=== PATIENT | male | born 1980 | race Caucasian/White ===

== ENCOUNTER 2021-05-10 08:50 | Day surgery (SDC) | payer OTHER ==
[2021-05-10 09:05] LABS: Absolute Lymphocytes (CBC) 0.9 K/uL (0.7-4.9); Basophils % 0.4 % (0-1.3); Hematocrit 38.6 % (39.6-49.0); Lymphocytes % 16.4 % (15.3-44.8); MPV 8.2 fL (7.6-11.3); RBC Red Blood Cell Count 4.95 M/uL (4.33-5.43)
[2021-05-10 09:21] LABS: Potassium 4.3 mmol/L (3.5-5.1)
--- NOTE | 2021-05-10 09:31 | RAD REPORT ---
EXAM DESCRIPTION: Roderick Baird (2 Views)05/10/2021 8:46 am CLINICAL HISTORY: Preop for abdominal mass surgery COMPARISON: None FINDINGS: The lungs appear clear of acute infiltrate. The heart is normal size IMPRESSION: No acute abnormalities displayed
[2021-05-10] MEDS ORDERED: Ringers Lactate 1,000 ML IV ONE (10:05)
[2021-05-10 10:06] VITALS: O2SAT 100
[2021-05-10] MEDS ORDERED: FENTANYL CITR 100 MCG/2 ML ONE (12:02)
[2021-05-10] MEDS ORDERED: propofoL 200 MG/20 ML VIAL IV ONE (12:02)
[2021-05-10] MEDS ORDERED: LIDOCAINE 2% MPF 5 ML VIAL ONE (12:02)
[2021-05-10] MEDS ORDERED: MIDAZOLAM HCL 2 MG/2 ML INJ ONE (12:02)
[2021-05-10] MEDS ORDERED: ONDANSETRON 4 MG/2 ML VIAL ONE (12:02)
[2021-05-10] MEDS ORDERED: KETOROLAC 30 MG/ML INJ ONE (12:03)
[2021-05-10] MEDS ORDERED: dexAMETHasone 10 MG/ML VIAL ONE (12:03)
[2021-05-10] MEDS: CEFAZOLIN/SWI 1gm 1 GM/10 ML SYR ONE ×2 (12:22→12:29)
--- NOTE | 2021-05-10 12:44 | P.BOP ---
Preoperative diagnosis: infected abdominal wall subQ mass, cellulitis /abscess abdominal wall Postoperative diagnosis: same Primary procedure: Excisional biopsy of infected abdominal wall subQ mass 3x3 cm Estimated blood loss: <10cc Specimen: infected abdominal wall subQ mass Findings: infected abdominal wall subQ mass with abscess Anesthesia: General Complications: None Drain(s): Other Transferred to: Recovery Room Condition: Good
--- NOTE | 2021-05-10 13:18 | OP ---
Date of Procedure: 05/10/2021 Surgeon: Gus Bhatia MD Preoperative Diagnoses: Infected abdominal wall subcutaneous mass with cellulitis, abscess of the ab dominal wall. Postoperative Diagnoses: Infected abdominal wall subcutaneous mass with cellulitis, abscess of the a bdominal wall. Procedures: Excisional biopsy of infected abdominal wall subcutaneous mass 3 x 3 cm with drainage of an abscess. Estimated Blood Loss: Less than 10 mL. Specimen: Infected abdominal wall subcutaneous mass with drainage of an abscess and those were the f indings. Anesthesia: General plus local. Packing: Wet-to-dry. Indications: This is the case of a 41-year-old patient with an expanding mass in the right upper jed drant of the abdomen with a cellulitis present, fluctuance present consistent with an abscess. The b enefits, alternatives, and risks of excisional biopsy of infected subcutaneous mass with abscess rubi brown were fully explained, which include, but not limited to infection, bleeding, damage to adjacent structures, anesthesia complication, nonhealing wound, HI, and even . He also understands this may not relieve any symptoms. He might need more than one surgical intervention. He understood, sig erendira a consent. The area of concern was marked by me and the patient in the holding room. Procedure In Detail: The patient was brought to the operating room and placed in supine position. A nesthesia was done without complication. Abdominal area was prepped and draped in usual sterile fash ion. A time-out was called. After that, I proceeded to make a wedge incision of the skin to include not only the mass, but also to drain the abscess. This goes deep into the fascia of the muscle, but does not penetrate the muscle. The area was profusely irrigated. Hemostasis was obtained. The are a was cultured before that and then packed with wet-to-dry dressing. The patient tolerated the proce dure well. The patient sent to recovery in stable condition. HM/MODL Voice ID: [id number] Report ID: [id number]
--- NOTE | 2021-05-10 13:18 | DS ---
Diagnosis: Infected abdominal wall subcutaneous mass with abscess. Procedure: Excisional biopsy of infected abdominal wall subcutaneous mass with abscess drainage. Disposition: Home. Activity: As tolerated. No heavy lifting. Plan: Follow up in my office in 1 week. Call for appointment at [phone]. Wet-to-dry dressing, nor mal saline daily. SVEN/GLENN Voice ID: [id number] Report ID: [id number]
[2021-05-10 14:45] VITALS: BP 99/61; TEMP 97.2
--- NOTE | 2021-05-10 16:33 | EKG ---
Test Date: 2021-05-10 Test Time: 07:36:37 [employer] Worker: SHALONDA MEASUREMENT RESULTS: Intervals: Rate: 61 OR: 172 QRSD: 90 QT: 368 QTc: 370 Shafer: P: 76 OR: 172 QRS: 85 T: 72 INTERPRETIVE STATEMENTS: Normal sinus rhythm Normal ECG No previous ECG available for comparison Electronically Signed On 05-10-21 16:32:57 CDT by Jeff Kovacs
== END 2021-05-10 14:23 | disposition home or self-care (01) ==
LOC: OR 08:50
PROVIDERS: ATTEND Surgery
PROC: 0JB80ZZ Excision of Abdomen Subcutaneous Tissue and Fascia, Open Approach (ICD-10-PCS; principal; 2021-05-10 11:45)
DX: L72.0 Epidermal cyst (principal); L03.311 Cellulitis of abdominal wall; L02.211 Cutaneous abscess of abdominal wall; Z20.822 Contact with and (suspected) exposure to COVID-19
CPT/HCPCS: 93005; 87070; 85025; 80048; 36415; 87205; 88304; 87075; 71046; 11402; U0003; J2704; J2250; J3010; J1100; J0690; J7120; J2405; 88305